=== PATIENT | male | born 1995 | race Caucasian/White ===

== ENCOUNTER 2016-11-04 18:32 | Emergency (ER) | payer SELFPAY ==
[~2016-11-04] VITALS: Ht 177.8 cm; Wt 63.4 kg
[~2016-11-04 18:32] MED LIST: BACTRIM,SEPT1 TABLET PO; KEFLEX500 MG PO; NAPROSYN500 MG PO; NORCO 7.5/321 TABLET PO
[2016-11-04 19:10] LABS: HEMATOCRIT 47.1 % (38.0-50.0); MCHC 34.4 G/DL (30.0-36.0); MCV 90.2 FL (86-99); RBC DIS.WIDTH-CV 12.2 % (11.8-14.6); RED BLOOD COUNT 5.22 M/uL (4.00-5.50); WHITE BLOOD COUNT 6.8 K/uL (4.1-10.2)
[2016-11-04 19:27] LABS: CHLORIDE 105 mEq/L (99-109); POTASSIUM 3.8 mEq/L (3.7-5.4); SODIUM 138 mEq/L (136-147)
[2016-11-04 19:29] LABS: GLUCOSE 97 mg/dL (70-99)
[2016-11-04 19:30] LABS: ANION GAP 13 MEQ/L (2-14)
[2016-11-04 19:33] LABS: GFR ESTIMATE (CALCULATED) > 59 mL/min/; UREA NITROGEN (BUN) 10 mg/dL (9-23)
[2016-11-04 19:35] LABS: TROP-I INTERPRETATION NEGATIVE; TROPONIN-I < 0.01 ng/mL (0.0-0.30)
[2016-11-04 19:48] VITALS: BP 118/68
[2016-11-04 20:07] LABS: MEAN PLAT.VOLUME 11.4 uM^3 (9.0-12.4); PLAT.SUFFICIENCY ADEQUATE; PLATELET COUNT 206 K/uL (156-360)
== END 2016-11-04 19:49 | disposition home or self-care (01) ==
LOC: EME 18:32
PROVIDERS: Nurse Practitioner Family
DX: S29.011A Strain of muscle and tendon of front wall of thorax, initial encounter (principal); X50.0XXA Overexertion from strenuous movement or load, initial encounter; Y99.0 Civilian activity done for income or pay; F17.200 Nicotine dependence, unspecified, uncomplicated
CPT/HCPCS: 71020; 80048; 84484; 85027; 93005; 99281; 99283

== ENCOUNTER 2018-01-06 15:54 | Emergency (ER) | payer SELFPAY ==
[~2018-01-06] VITALS: Ht 172.7 cm; Wt 67.4 kg
[2018-01-06] MEDS ORDERED: MOTRIN800 MG PO (18:24)
[2018-01-06 19:00] VITALS: BP 130/81
== END 2018-01-06 19:00 | disposition home or self-care (01) ==
LOC: EME 15:54
PROC: 2W3CX1Z Immobilization of Right Lower Arm using Splint (ICD-10-PCS; principal; 2018-01-06)
DX: S63.91XA Sprain of unspecified part of right wrist and hand, initial encounter (principal); Y04.0XXA Assault by unarmed brawl or fight, initial encounter
CPT/HCPCS: 73110; 73130; 99281; 99284